=== PATIENT | female | born 2000 | race American Indian/Alaskan Native ===

== ENCOUNTER 2019-03-18 20:07 | Emergency (ER) | payer MEDICAID ==
--- NOTE | 2019-03-18 20:27 | Emergency Department Report ---
Blank Doc - Documentation Documentation: This is a 19-year-old female that presents with pelvic cramping. Patient is 18 weeks . Denies any vaginal bleeding. This initial assessment/diagnostic orders/clinical plan/treatment(s) is/are subject to change based on patient's health status, clinical progression and re- assessment by fellow clinical providers in the ED. Further treatment and workup at subsequent clinical providers discretion. Patient/guardians urged not to elope from the ED as their condition may be serious if not clinically assessed and managed. Initial orders include: 1- Patient sent to [facility] for further evaluation and treatment 2- UA 3- labs
[2019-03-18 21:05] LABS: Basophils % (Auto) 0.2 % (0.0-1.8); Eosinophils # (Auto) 0.1 K/mm3 (0.0-0.4); Eosinophils % (Auto) 0.7 % (0.0-4.3); Hematocrit 34.7 % (30.3-42.9); Hemoglobin 11.6 gm/dl (10.1-14.3); Lymphocytes # (Auto) 0.9 K/mm3 (1.2-5.4); Lymphocytes % (Auto) 11.2 % (13.4-35.0); Mean Corpuscular HGB Conc 33 % (30-34); Mean Corpuscular Volume 94 fl (79-97); Monocytes # (Auto) 0.6 K/mm3 (0.0-0.8); Monocytes % (Auto) 7.2 % (0.0-7.3); Platelet Count 181 K/mm3 (140-440); Red Blood Count 3.67 M/mm3 (3.65-5.03); Red Cell Distribution Width 13.7 % (13.2-15.2)
[2019-03-18 21:24] LABS: BUN/Creatinine Ratio 18; Blood Urea Nitrogen 9 mg/dL (7-17); Calcium 8.5 mg/dL (8.4-10.2); Hemolysis Index 4
[2019-03-18 21:59] LABS: Bilirubin,Urine NEG (Negative); Blood,Urine NEG (Negative); Color,Urine Yellow (Yellow); Mucus,Urine FEW /HPF; Protein,Urine <15 mg/dL mg/dL (Negative)
--- NOTE | 2019-03-19 00:37 | Ultrasound Report ---
PROCEDURE: US OB >= 14 WEEKS FETUS TECHNIQUE: Transabdominal imaging was obtained of the pelvis. HISTORY: Abd pain COMPARISONS: None FINDINGS: There is a single viable intrauterine with an estimated gestational age of 17 weeks 4 days based on sonographic criteria. The heart rate is 140 BPM. The fetus is in transverse lie with t he head toward maternal right side. The placenta is posterior in position and is grade 1. There is no evidence of previa. A complete survey of organs was not obtained. Free fluid is not seen in th e pelvis. The maternal adnexa were not imaged. IMPRESSION: Single viable IUP, 17 weeks 4 days. The heart rate is 140 BPM.. This document is electronically signed by Vini Hooker MD., March 19 2019 12:35:30 AM ET
--- NOTE | 2019-03-19 01:35 | Emergency Department Report ---
ED HPI - General Chief complaint: Abdominal Pain Stated complaint: CRAMPING 18 WEEKS Time Seen by Provider: 03/18/19 20:25 Source: patient Mode of arrival: Ambulatory Limitations: No Limitations - History of Present Illness Initial comments: This is a 19-year-old -[place] female who presents with abdominal cramping during since 12:00 today. Patient is followed by [facility] at [facility]. Last menstrual period 11/14/2018, A1 miscarriage. She reports the cramping is intermittent diffuse sensation. Denies vaginal bleeding, vaginal discharge, low back pain, nausea or vomiting. MD Complaint: abdominal pain -: This afternoon Location: abdomen Radiation: none Severity: mild Severity scale (0 -10): 2 Quality: cramping Consistency: intermittent Improves with: none Worsens with: none Associated symptoms: denies other symptoms Vaginal bleeding: none :: Yes Number of weeks : 18 OB History - Current : no complications OB History - Previous Pregnancies: miscarriage Last menstrual period: 11/14/18 Pre-betzy care: followed by OB - Related Data : 2 Para: 0 Ab: 1 (miscarriage) Allergies Allergy/AdvReac Type Severity Reaction Status Date / Time No Known Allergies Allergy Unverified 03/18/19 20:32 ED Review of Systems ROS: Stated complaint: CRAMPING 18 WEEKS Other details as noted in HPI Constitutional: denies: chills, fever Respiratory: denies: cough, shortness of breath, wheezing Cardiovascular: denies: chest pain, palpitations Gastrointestinal: abdominal pain. denies: nausea, diarrhea Genitourinary: denies: urgency, dysuria, discharge Musculoskeletal: denies: back pain, joint swelling, arthralgia Skin: denies: rash, lesions Neurological: denies: headache, weakness, paresthesias Psychiatric: denies: anxiety, depression ED Past Medical Hx - Past Medical History Previous Medical History?: No - Surgical History Past Surgical History?: No - Social History Smoking Status: Never Smoker Substance Use Type: None ED Physical Exam - General Limitations: No Limitations General appearance: alert, in no apparent distress - Respiratory Respiratory exam: Present: normal lung sounds bilaterally. Absent: respiratory distress - Cardiovascular Cardiovascular Exam: Present: regular rate, normal rhythm. Absent: systolic murmur, diastolic murmur, rubs, gallop - GI/Abdominal GI/Abdominal exam: Present: soft, normal bowel sounds. Absent: distended, tende rness, guarding, rebound, rigid - Back Exam Back exam: Absent: CVA tenderness (R), CVA tenderness (L) - Neurological Exam Neurological exam: Present: alert, oriented X3 - Psychiatric Psychiatric exam: Present: normal affect, normal mood - Skin Skin exam: Present: warm, dry, intact, normal color. Absent: rash ED Medical Decision Making - Lab Data Result diagrams: 03/18/19 20:44 03/18/19 20:44 Lab Results 03/18/19 03/18/19 03/18/19 Range/Units 20:44 20:44 20:44 WBC 8.2 (4.5-11.0) K/mm3 RBC 3.67 (3.65-5.03) M/mm3 Hgb 11.6 (10.1-14.3) gm/dl Hct 34.7 (30.3-42.9) % MCV 94 (79-97) fl MCH 32 (28-32) pg MCHC 33 (30-34) % RDW 13.7 (13.2-15.2) % Plt Count 181 (140-440) K/mm3 Lymph % (Auto) 11.2 L (13.4-35.0) % Newton % (Auto) 7.2 (0.0-7.3) % Eos % (Auto) 0.7 (0.0-4.3) % Baso % (Auto) 0.2 (0.0-1.8) % Lymph # 0.9 L (1.2-5.4) K/mm3 Newton # 0.6 (0.0-0.8) K/mm3 Eos # 0.1 (0.0-0.4) K/mm3 Baso # 0.0 (0.0-0.1) K/mm3 Seg Neutrophils % 80.7 H (40.0-70.0) % Seg Neutrophils # 6.6 (1.8-7.7) K/mm3 Sodium 134 L (137-145) mmol/L Potassium 3.6 (3.6-5.0) mmol/L Chloride 103.0 (98-107) mmol/L Carbon Dioxide 21 L (22-30) mmol/L Anion Gap 14 mmol/L BUN 9 (7-17) mg/dL Creatinine 0.5 L (0.7-1.2) mg/dL Estimated GFR > 60 ml/min BUN/Creatinine Ratio 18 % Glucose 103 H (65-100) mg/dL Calcium 8.5 (8.4-10.2) mg/dL HCG, Quant 7440 H (0-4) mIU/mL Urine Color (Yellow) Urine Turbidity (Clear) Urine pH (5.0-7.0) Ur Specific [place] (1.003-1.030) Urine Protein (Negative) mg/dL Urine Glucose (UA) (Negative) mg/dL Urine Ketones (Negative) mg/dL Urine Blood (Negative) Urine Nitrite (Negative) Urine Bilirubin (Negative) Urine Urobilinogen (<2.0) mg/dL Ur Leukocyte Esterase (Negative) Urine WBC (Auto) (0.0-6.0) /HPF Urine RBC (Auto) (0.0-6.0) /HPF U Epithel Cells (Auto) (0-13.0) /HPF Urine Mucus /HPF 03/18/19 Range/Units 21:30 WBC (4.5-11.0) K/mm3 RBC (3.65-5.03) M/mm3 Hgb (10.1-14.3) gm/dl Hct (30.3-42.9) % MCV (79-97) fl MCH (28-32) pg MCHC (30-34) % RDW (13.2-15.2) % Plt Count (140-440) K/mm3 Lymph % (Auto) (13.4-35.0) % Newton % (Auto) (0.0-7.3) % Eos % (Auto) (0.0-4.3) % Baso % (Auto) (0.0-1.8) % Lymph # (1.2-5.4) K/mm3 [place] # (0.0-0.8) K/mm3 Eos # (0.0-0.4) K/mm3 Baso # (0.0-0.1) K/mm3 Seg Neutrophils % (40.0-70.0) % Seg Neutrophils # (1.8-7.7) K/mm3 Sodium (137-145) mmol/L Potassium (3.6-5.0) mmol/L Chloride (98-107) mmol/L Carbon Dioxide (22-30) mmol/L Anion Gap mmol/L BUN (7-17) mg/dL Creatinine (0.7-1.2) mg/dL Estimated GFR ml/min BUN/Creatinine Ratio % Glucose (65-100) mg/dL Calcium (8.4-10.2) mg/dL HCG, Quant (0-4) mIU/mL Urine Color Yellow (Yellow) Urine Turbidity Clear (Clear) Urine pH 8.0 H (5.0-7.0) Ur Specific [place] 1.033 H (1.003-1.030) Urine Protein <15 mg/dl (Negative) mg/dL Urine Glucose (UA) Neg (Negative) mg/dL Urine Ketones 20 (Negative) mg/dL Urine Blood Neg (Negative) Urine Nitrite Neg (Negative) Urine Bilirubin Neg (Negative) Urine Urobilinogen 2.0 (<2.0) mg/dL Ur Leukocyte Esterase Mod (Negative) Urine WBC (Auto) 10.0 H (0.0-6.0) /HPF Urine RBC (Auto) 5.0 (0.0-6.0) /HPF U Epithel Cells (Auto) 9.0 (0-13.0) /HPF Urine Mucus Few /HPF - Radiology Data Radiology results: report reviewed PROCEDURE: US OB >= 14 WEEKS FETUS TECHNIQUE: Transabdominal imaging was obtained of the pelvis. HISTORY: Abd pain COMPARISONS: None FINDINGS: There is a single viable intrauterine with an estimated gestational age of 17 weeks 4 days based on sonographic criteria. The heart rate is 140 BPM. The fetus is in transverse lie with the head toward maternal right side. The placenta is posterior in position and is grade 1. There is no evidence of previa. A complete survey of organs was not obtained. Free fluid is not seen in the pelvis. The maternal adnexa were not imaged. IMPRESSION: Single viable IUP, 17 weeks 4 days. The heart rate is 140 BPM.. - Medical Decision Making This is a 19 y.o. female presents with abdominal cramping during for 2 days. Patient was examined by me. Vitals are normal and patient is in no acute distress. Obtained labs and OB ultrasound. Quant 7440 all other labs unremarkable. Single viable IUP, 17 weeks 4 days. The heart rate is 140 BPM. Patient instructed to follow up with [facility]. Patient discharged home in stable condition. Critical care attestation.: If time is entered above; I have spent that time in minutes in the direct care of this critically ill patient, excluding procedure time. ED Disposition Clinical Impression: Abdominal cramping affecting , Threatened miscarriage in early Acute cystitis during Qualifiers: Trimester: second trimester Qualified Code(s): O23.12 - Infections of bladder in , second trimester Disposition: TO HOME OR SELFCARE Is pt being admited?: No Does the pt Need Aspirin: No Condition: Stable Instructions: Abdominal Pain (ED), Threatened Miscarriage (ED), Urinary Tract Infection in Women (ED) Additional Instructions: Remain on bed rest. Follow up with [facility] in 24-48 hours. Increase fluid intake to 1L to 2L daily. Complete full course of antibiotics as prescribed. Return to ER if increased vaginal bleeding, abdominal pain, and low back pain. Follow up with primary care provider in 2-3 days. Referrals: [facility] [Primary Care Provider] - 3-5 Days [facility] [Provider Group] - 3-5 Days [facility] [Provider Group] - 3-5 Days Forms: Work/School Release Form(ED) Time of Disposition: 01:59
== END 2019-03-19 02:07 | disposition home or self-care (01) ==
LOC: ED 20:07
DX: O20.0 Threatened abortion (principal); O23.12 Infections of bladder in pregnancy, second trimester; Z3A.18 18 weeks gestation of pregnancy
CPT/HCPCS: 36415; 76805; 80048; 81001; 84702; 85025

== ENCOUNTER 2019-05-20 04:45 | Outpatient (CLI) | payer OTHER ==
[2019-05-20] MEDS ORDERED: LACTATED RINGERS 1,000 ML IV ONE (05:11)
[2019-05-20 05:33] LABS: Bacteria,Urine 1+ /HPF (Negative); Bilirubin,Urine NEG (Negative); Blood,Urine NEG (Negative); Color,Urine Yellow (Yellow); Mucus,Urine 3+ /HPF
[2019-05-20 06:35] VITALS: BP 94/55
== END 2019-05-20 07:00 | disposition home or self-care (01) ==
LOC: TRG 04:45
PROVIDERS: ATTEND Obstetrics & Gynecology
DX: O26.892 Other specified pregnancy related conditions, second trimester (principal); R10.11 Right upper quadrant pain; O99.353 Diseases of the nervous system complicating pregnancy, third trimester; G43.909 Migraine, unspecified, not intractable, without status migrainosus; O62.9 Abnormality of forces of labor, unspecified; Z3A.27 27 weeks gestation of pregnancy
CPT/HCPCS: 59025; 81001; 87086; 96360; J7120

== ENCOUNTER 2019-06-14 20:50 | Outpatient (CLI) | payer SELFPAY ==
[2019-06-14] MEDS ORDERED: LACTATED RINGERS 500 ML IV ONE (23:44)
[2019-06-14] MEDS ORDERED: BRETHINE SUB-Q SCH (23:45)
[2019-06-15 00:25] LABS: Bilirubin,Urine NEG (Negative); Blood,Urine NEG (Negative); Color,Urine Yellow (Yellow); Mucus,Urine 3+ /HPF; Urobilinogen,Urine < 2.0 mg/dL (<2.0)
[2019-06-15] MEDS ORDERED: ceFAZolin 2 GM in NACL 0.9% 100 ML IV ONE (01:29)
[2019-06-15] MEDS ORDERED: ANCEF/STERILE WATER 2 GM/20 ML 2 GM/20 ML SYRINGE IV ONE (01:53)
== END 2019-06-15 02:37 | disposition home or self-care (01) ==
LOC: TRG 20:50
PROVIDERS: ATTEND Obstetrics & Gynecology
DX: O26.893 Other specified pregnancy related conditions, third trimester (principal); R42 Dizziness and giddiness; O60.03 Preterm labor without delivery, third trimester; O99.353 Diseases of the nervous system complicating pregnancy, third trimester; G43.909 Migraine, unspecified, not intractable, without status migrainosus; Z3A.31 31 weeks gestation of pregnancy
CPT/HCPCS: 81001; 87086; 96374; J0690; J7120; 96360; 96365

== ENCOUNTER 2019-07-08 19:13 | Outpatient (CLI) | payer OTHER ==
[2019-07-08 20:02] LABS: Bilirubin,Urine NEG (Negative); Blood,Urine NEG (Negative); Color,Urine Yellow (Yellow); Mucus,Urine 3+ /HPF
[2019-07-08] MEDS ORDERED: CELESTONE SOLUSPAN IM ONE (20:18)
[2019-07-08] MEDS ORDERED: BRETHINE ONE (20:22)
[2019-07-08] MEDS ORDERED: LACTATED RINGERS 1,000 ML IV ONE (20:40)
[2019-07-08] MEDS ORDERED: BRETHINE SUB-Q SCH (21:00)
[2019-07-08] MEDS ORDERED: LACTATED RINGERS 1,000 ML IV SCH (21:00)
[2019-07-08 21:26] VITALS: BP 107/61
== END 2019-07-08 21:42 | disposition home or self-care (01) ==
LOC: TRG 19:13
PROVIDERS: ATTEND Obstetrics & Gynecology
DX: O62.9 Abnormality of forces of labor, unspecified (principal); O26.893 Other specified pregnancy related conditions, third trimester; R42 Dizziness and giddiness; Z3A.34 34 weeks gestation of pregnancy
CPT/HCPCS: 59025; 81001; 96360; 96361; 96372; J0702; J3105; J7120

== ENCOUNTER 2019-07-12 21:00 | Outpatient (CLI) | payer OTHER ==
[2019-07-12 22:13] VITALS: BP 111/56
[2019-07-12] MEDS ORDERED: LACTATED RINGERS 1,000 ML IV SCH (23:19)
[2019-07-12] MEDS ORDERED: LACTATED RINGERS 1,000 ML ONE (23:19)
== END 2019-07-13 02:30 | disposition home or self-care (01) ==
LOC: TRG 21:00
PROVIDERS: ATTEND Obstetrics & Gynecology
DX: O62.9 Abnormality of forces of labor, unspecified (principal); Z3A.34 34 weeks gestation of pregnancy
CPT/HCPCS: 59025; J7120; 96360

== ENCOUNTER 2019-07-23 16:56 | Outpatient (CLI) | payer OTHER ==
[2019-07-23] MEDS ORDERED: LACTATED RINGERS 500 ML IV ONE (17:12)
[2019-07-23 17:33] VITALS: BP 103/63
[2019-07-23 17:59] LABS: Bilirubin,Urine NEG (Negative); Blood,Urine NEG (Negative); Color,Urine Yellow (Yellow); Mucus,Urine 3+ /HPF; Protein,Urine <15 mg/dL mg/dL (Negative); Urobilinogen,Urine < 2.0 mg/dL (<2.0)
[2019-07-23] MEDS ORDERED: LACTATED RINGERS 1,000 ML IV SCH (18:00)
[2019-07-23 18:12] LABS: Basophils % (Auto) 0.5 % (0.0-1.8); Eosinophils % (Auto) 0.4 % (0.0-4.3); Hematocrit 32.4 % (30.3-42.9); Hemoglobin 10.6 gm/dl (10.1-14.3); Lymphocytes # (Auto) 0.9 K/mm3 (1.2-5.4); Lymphocytes % (Auto) 11.7 % (13.4-35.0); Mean Corpuscular HGB Conc 33 % (30-34); Mean Corpuscular Volume 81 fl (79-97); Monocytes # (Auto) 0.6 K/mm3 (0.0-0.8); Monocytes % (Auto) 8.2 % (0.0-7.3); Platelet Count 127 K/mm3 (140-440); Red Blood Count 4.01 M/mm3 (3.65-5.03); Red Cell Distribution Width 15.5 % (13.2-15.2)
[2019-07-23 18:37] LABS: Alanine Aminotransferase 16 units/L (7-56); Albumin 3.1 g/dL (3.9-5); BUN/Creatinine Ratio 22; Blood Urea Nitrogen 11 mg/dL (7-17); Calcium 8.6 mg/dL (8.4-10.2); Hemolysis Index 51
--- NOTE | 2019-07-23 20:35 | Ultrasound Report ---
ULTRASOUND OBSTETRIC INDICATION / CLINICAL INFORMATION: ob complete. Clinical Gestational Age (GA): Uncertain TECHNIQUE: Transabdominal. COMPARISON: OB ultrasound 03/18/2019 FINDINGS: There is a single intrauterine . Biparietal Diameter = 3.6 cm = 34 weeks, 4 day(s). Head Circumference = 31.0 cm = 34 weeks, 4 day(s). Abdominal Circumference = 30.8 cm = 34 weeks, 5 day(s). Femur Length = 7.0 cm = 35 weeks, 5 day(s). Average Ultrasound Age (AUA) = 34 weeks, 6 day(s). Heart Rate: 161 beats per minute. Estimated Weight in grams (if calculated): 2560 Position: cephalic. Cervix: closed. Length in cm (if measured): 3.7 Placenta: Fundal grade 1 and free of the os. Amniotic Fluid Volume: normal Amniotic Fluid Index (LM) in cm (if calculated): 15.5. Maternal Adnexa: No significant abnormality. IMPRESSION: 1. Single, living intrauterine with estimated sonographic age of 34 weeks, 6 day(s). 2. No significant sonographic abnormality. ULTRASOUND BIOPHYSICAL PROFILE INDICATION: ob complete. COMPARISON: None available. FINDINGS: BREATHING MOVEMENT = 2 GROSS BODY MOVEMENT = 2 TONE = 2 QUALITATIVE AMNIOTIC FLUID VOLUME = 2 TOTAL BIOPHYSICAL SCORE = 8 AMNIOTIC FLUID INDEX (cm) = 15.5 PRESENTATION: Cephalic. HEART RATE (beats per minute): 161 IMPRESSION: 1. biophysical profile = 07/02 Signer Name: Matthias Babin MD Signed: 07/23/2019 8:31 PM Workstation Name: [email or web address]
== END 2019-07-23 20:20 | disposition home or self-care (01) ==
LOC: TRG 16:56
PROVIDERS: ATTEND Obstetrics & Gynecology
DX: O47.03 False labor before 37 completed weeks of gestation, third trimester (principal); O26.893 Other specified pregnancy related conditions, third trimester; R10.2 Pelvic and perineal pain; Z3A.36 36 weeks gestation of pregnancy
CPT/HCPCS: 36415; 76816; 76819; 80053; 81001; 85025; 87086; J7120

== ENCOUNTER 2019-08-02 23:03 | Outpatient (CLI) | payer OTHER ==
[2019-08-02 23:24] VITALS: BP 112/69
== END 2019-08-03 00:12 | disposition home or self-care (01) ==
LOC: TRG 23:03
PROVIDERS: ATTEND Obstetrics & Gynecology
DX: O60.03 Preterm labor without delivery, third trimester (principal); Z3A.37 37 weeks gestation of pregnancy
CPT/HCPCS: 59025

== ENCOUNTER 2019-10-06 03:00 | Emergency (ER) | payer OTHER ==
[2019-10-06] MEDS ORDERED: SODIUM CHLORIDE 0.9% 500 ML 500 ML IV ONE (03:12)
[2019-10-06] MEDS ORDERED: IBUPROFEN 800 MG TAB PO ONE (03:28)
[2019-10-06] MEDS ORDERED: ACETAMINOPHEN 500 MG TAB PO ONE (03:28)
[2019-10-06 03:42] LABS: Hematocrit 36.8 % (30.3-42.9); Hemoglobin 11.4 gm/dl (10.1-14.3); Mean Corpuscular HGB Conc 31 % (30-34); Mean Corpuscular Volume 79 fl (79-97); Platelet Count 213 K/mm3 (140-440); Red Blood Count 4.65 M/mm3 (3.65-5.03); Red Cell Distribution Width 18.8 % (13.2-15.2)
--- NOTE | 2019-10-06 03:45 | XRay Report ---
CHEST 1 VIEW INDICATION / CLINICAL INFORMATION: possible Sepsis. COMPARISON: None available. FINDINGS: SUPPORT DEVICES: None. HEART / MEDIASTINUM: No significant abnormality. LUNGS / PLEURA: No significant pulmonary or pleural abnormality. No pneumothorax. ADDITIONAL FINDINGS: No significant additional findings. IMPRESSION: 1. No acute findings. No evidence of pneumonia. Signer Name: Geri Garcia MD Signed: 10/06/2019 3:41 AM Workstation Name: [id number]
[2019-10-06 04:04] LABS: Alanine Aminotransferase 21 units/L (7-56); Albumin 4.2 g/dL (3.9-5); BUN/Creatinine Ratio 18; Blood Urea Nitrogen 14 mg/dL (7-17); Calcium 8.6 mg/dL (8.4-10.2); Hemolysis Index 6
[2019-10-06] MEDS ORDERED: POTASSIUM CHLORIDE ER 20 MEQ TAB PO ONE (04:13)
--- NOTE | 2019-10-06 04:13 | Emergency Department Report ---
ED Fever HPI - General Chief Complaint: Fever Stated Complaint: FEVER BODY ACHING CHEST PAIN Time Seen by Provider: 10/06/19 03:23 - History of Present Illness Initial Comments: Sheeba is a 19 yo healthy female without significant past medical history who presents with fever for the past day. She has diffuse body aches. She has mild headache. She self treated with ibuprofen and Tylenol prior to arrival. No sick contacts. Positive back pain. No dysuria. No cough. No sick contacts. She stays at home with significant other and 2 month old infant. She is . Timing/Duration: this morning Fever Severity/Quality: subjective Fever Therapy SAFETY INSPECTOR: Ibuprofen, Tylenol Associated Symptoms: headache, muscle aches, other (back pain) ED Review of Systems ROS: Stated complaint: FEVER BODY ACHING CHEST PAIN Other details as noted in HPI Comment: All other systems reviewed and negative Constitutional: fever, malaise Gastrointestinal: denies: abdominal pain, nausea, vomiting Genitourinary: denies: dysuria Musculoskeletal: back pain ED Past Medical Hx - Past Medical History Previous Medical History?: No Hx Hypertension: No Hx Diabetes: No Hx Deep Vein Thrombosis: No Hx Renal Disease: No Hx Sickle Cell Disease: No Hx Seizures: No Hx Asthma: No Hx HIV: No - Surgical History Past Surgical History?: Yes Additional Surgical History: - Family History Family history: hypertension - Social History Smoking Status: Never Smoker Substance Use Type: None - Medications Home Medications: Home Medications Medication Instructions Recorded Confirmed Last Taken Type Vit-Fe Fumar-FA [ 1 tab PO DAILY 05/20/19 08/16/19 1 Day Ago History Vitamin] ~08/15/19 HYDROcodone/APAP 5-325 [[place] 1 - 2 each PO Q4HR PRN #30 tablet 08/16/19 Unknown Rx 5/325] Ferrous Sulfate [Feosol 325 MG tab] 325 mg PO BID #60 tablet 08/19/19 Unknown Rx Ibuprofen [Motrin 800 MG tab] 800 mg PO Q6H PRN #30 tablet 08/19/19 Unknown Rx Vit-Fe Fumar-FA [ 1 each PO QDAY #30 tablet 08/19/19 Unknown Rx Vitamin] cephALEXin [Keflex] 500 mg PO Q6HR 7 Days #28 capsule 10/06/19 Unknown Rx ED Physical Exam - General Limitations: No Limitations General appearance: alert, in no apparent distress - Head Head exam: Present: atraumatic, normocephalic - Eye Eye exam: Present: normal appearance - ENT ENT exam: Present: mucous membranes moist - Neck Neck exam: Present: normal inspection, full ROM - Respiratory Respiratory exam: Present: normal lung sounds bilaterally. Absent: respiratory distress, wheezes, rales, rhonchi - Cardiovascular Cardiovascular Exam: Present: normal rhythm, tachycardia, normal heart sounds. Absent: systolic murmur, diastolic murmur, rubs, gallop - GI/Abdominal GI/Abdominal exam: Present: soft, normal bowel sounds. Absent: distended, tenderness, guarding, rebound - Extremities Exam Extremities exam: Present: normal inspection - Back Exam Back exam: Present: normal inspection - Neurological Exam Neurological exam: Present: alert, oriented X3 - Psychiatric Psychiatric exam: Present: normal affect, normal mood - Skin Skin exam: Present: warm, dry, intact, normal color. Absent: rash ED Course Vital Signs 10/06/19 10/06/19 10/06/19 03:08 03:25 03:31 Temperature 102.5 F H Pulse Rate 118 H 114 H 138 H Respiratory 18 21 16 Rate Blood Pressure 114/74 124/75 124/75 Blood Pressure [Left] O2 Sat by Pulse 99 99 Oximetry 10/06/19 10/06/19 10/06/19 03:32 03:40 03:42 Temperature 102.6 F H Pulse Rate 115 H Respiratory 16 16 16 Rate Blood Pressure Blood Pressure 125/63 [Left] O2 Sat by Pulse 100 Oximetry 10/06/19 10/06/19 10/06/19 03:45 04:00 04:40 Temperature Pulse Rate 114 H 104 H Respiratory 22 24 16 Rate Blood Pressure 124/75 114/74 Blood Pressure [Left] O2 Sat by Pulse 99 99 Oximetry 10/06/19 04:42 Temperature Pulse Rate Respiratory 16 Rate Blood Pressure Blood Pressure [Left] O2 Sat by Pulse Oximetry ED Medical Decision Making - Lab Data Result diagrams: 10/06/19 03:24 10/06/19 03:24 Laboratory Results - last 24 hr 10/06/19 10/06/19 10/06/19 03:24 03:24 03:24 WBC 14.7 H RBC 4.65 Hgb 11.4 Hct 36.8 MCV 79 MCH 24 L MCHC 31 RDW 18.8 H Plt Count 213 Seg Neutrophils % Coding Machine Operator Sodium 141 Potassium 2.7 L* Chloride 104.0 Carbon Dioxide 20 L Anion Gap 20 BUN 14 Creatinine 0.8 Estimated GFR > 60 BUN/Creatinine Ratio 18 Glucose 104 H Lactic Acid 1.50 Calcium 8.6 Total Bilirubin 0.20 AST 23 ALT 21 Alkaline Phosphatase 108 Total Protein 7.8 Albumin 4.2 Albumin/Globulin Ratio 1.2 Laboratory Results - last 24 hr 10/06/19 10/06/19 10/06/19 03:24 03:24 03:24 WBC 14.7 H RBC 4.65 Hgb 11.4 Hct 36.8 MCV 79 MCH 24 L MCHC 31 RDW 18.8 H Plt Count 213 Add Manual Diff Complete Total Counted 100 Seg Neutrophils % Coding Machine Operator Seg Neuts % (Manual) 92.0 H Band Neutrophils % 0 Lymphocytes % (Manual) 3.0 L Reactive Lymphs % (Man) 0 Monocytes % (Manual) 2.0 Eosinophils % (Manual) 3.0 Basophils % (Manual) 0 Metamyelocytes % 0 Myelocytes % 0 Promyelocytes % 0 Blast Cells % 0 Nucleated RBC % Not Reportable Seg Neutrophils # Man 13.5 H Band Neutrophils # 0.0 Lymphocytes # (Manual) 0.4 L Abs React Lymphs (Man) 0.0 Monocytes # (Manual) 0.3 Eosinophils # (Manual) 0.4 Basophils # (Manual) 0.0 Metamyelocytes # 0.0 Myelocytes # 0.0 Promyelocytes # 0.0 Blast Cells # 0.0 WBC Morphology Not Reportable Hypersegmented Neuts Not Reportable Hyposegmented Neuts Not Reportable Hypogranular Neuts Not Reportable Smudge Cells Not Reportable Toxic Granulation Not Reportable Toxic Vacuolation Not Reportable Dohle Bodies Not Reportable Pelger-Huet Anomaly Not Reportable Akil Rods Not Reportable Platelet Estimate Consistent w auto Clumped Platelets Not Reportable Plt Clumps, EDTA Not Reportable Large Platelets Not Reportable Giant Platelets Not Reportable Platelet Satelliting Not Reportable Plt Morphology Comment Not Reportable RBC Morphology Not Reportable Dimorphic RBCs Not Reportable Polychromasia Not Reportable Hypochromasia Not Reportable Poikilocytosis Not Reportable Anisocytosis 1+ Microcytosis Not Reportable Macrocytosis Not Reportable Spherocytes Not Reportable Pappenheimer Bodies Not Reportable Sickle Cells Not Reportable Target Cells Not Reportable Tear Drop Cells Not Reportable Ovalocytes Not Reportable Helmet Cells Not Reportable [place] Bodies Not Reportable [place] Rings Not Reportable [place] Cells Not Reportable Bite Cells Not Reportable Crenated Cell Not Reportable Elliptocytes Not Reportable Acanthocytes (Spur) Not Reportable Rouleaux Not Reportable Hemoglobin C Crystals Not Reportable Schistocytes Not Reportable Malaria parasites Not Reportable Miller Bodies Not Reportable Hem Pathologist Commnt No Sodium 141 Potassium 2.7 L* Chloride 104.0 Carbon Dioxide 20 L Anion Gap 20 BUN 14 Creatinine 0.8 Estimated GFR > 60 BUN/Creatinine Ratio 18 Glucose 104 H Lactic Acid 1.50 Calcium 8.6 Total Bilirubin 0.20 AST 23 ALT 21 Alkaline Phosphatase 108 Total Protein 7.8 Albumin 4.2 Albumin/Globulin Ratio 1.2 Urine Color Urine Turbidity Urine pH Ur Specific [place] Urine Protein Urine Glucose (UA) Urine Ketones Urine Blood Urine Nitrite Urine Bilirubin Urine Urobilinogen Ur Leukocyte Esterase Urine WBC (Auto) Urine RBC (Auto) U Epithel Cells (Auto) Urine Bacteria (Auto) Urine Mucus 10/06/19 04:16 WBC RBC Hgb Hct MCV MCH MCHC RDW Plt Count Add Manual Diff Total Counted Seg Neutrophils % Seg Neuts % (Manual) Band Neutrophils % Lymphocytes % (Manual) Reactive Lymphs % (Man) Monocytes % (Manual) Eosinophils % (Manual) Basophils % (Manual) Metamyelocytes % Myelocytes % Promyelocytes % Blast Cells % Nucleated RBC % Seg Neutrophils # Man Band Neutrophils # Lymphocytes # (Manual) Abs React Lymphs (Man) Monocytes # (Manual) Eosinophils # (Manual) Basophils # (Manual) Metamyelocytes # Myelocytes # Promyelocytes # Blast Cells # WBC Morphology Hypersegmented Neuts Hyposegmented Neuts Hypogranular Neuts Smudge Cells Toxic Granulation Toxic Vacuolation Dohle Bodies Pelger-Huet Anomaly Akil Rods Platelet Estimate Clumped Platelets Plt Clumps, EDTA Large Platelets Giant Platelets Platelet Satelliting Plt Morphology Comment RBC Morphology Dimorphic RBCs Polychromasia Hypochromasia Poikilocytosis Anisocytosis Microcytosis Macrocytosis Spherocytes Pappenheimer Bodies Sickle Cells Target Cells Tear Drop Cells Ovalocytes Helmet Cells [place] Bodies [place] Rings [place] Cells Bite Cells Crenated Cell Elliptocytes Acanthocytes (Spur) Rouleaux Hemoglobin C Crystals Schistocytes Malaria parasites Miller Bodies Hem Pathologist Commnt Sodium Potassium Chloride Carbon Dioxide Anion Gap BUN Creatinine Estimated GFR BUN/Creatinine Ratio Glucose Lactic Acid Calcium Total Bilirubin AST ALT Alkaline Phosphatase Total Protein Albumin Albumin/Globulin Ratio Urine Color Yellow Urine Turbidity Cloudy Urine pH 5.0 Ur Specific [place] 1.033 H Urine Protein >500 Urine Glucose (UA) Neg Urine Ketones 20 Urine Blood Sm Urine Nitrite Neg Urine Bilirubin Neg Urine Urobilinogen 4.0 Ur Leukocyte Esterase Mod Urine WBC (Auto) 73.0 H Urine RBC (Auto) 20.0 U Epithel Cells (Auto) 34.0 H Urine Bacteria (Auto) 3+ Urine Mucus 3+ - Medical Decision Making Sheeba presents with fever body aches DDX: influenza vs acute pyelonephritis, with elevated WBC, consider bacterial infection, UA contaminated with equivocal results rx: cephalexin, Sheeba is . given IV ceftriaxone in the ED Also given potassium supplementation Critical care attestation.: If time is entered above; I have spent that time in minutes in the direct care of this critically ill patient, excluding procedure time. ED Disposition Clinical Impression: Acute pyelonephritis Disposition: DC-01 TO HOME OR SELFCARE Is pt being admited?: No Does the pt Need Aspirin: No Condition: Stable Instructions: Acute Pyelonephritis (ED) Prescriptions: cephALEXin [Keflex] 500 mg PO Q6HR 7 Days #28 capsule Referrals: PRIMARY CARE, [Primary Care Provider] - 3-5 Days
[2019-10-06 04:40] LABS: Anisocytosis 1+; Basophils % (Manual) 0 % (0.0-1.8); Platelet Estimate Consistent w Auto; Total Cells Counted 100
[2019-10-06 04:43] LABS: Bacteria,Urine 3+ /HPF (Negative); Bilirubin,Urine NEG (Negative); Blood,Urine SM (Negative); Color,Urine Yellow (Yellow); Mucus,Urine 3+ /HPF
[2019-10-06 04:44] LABS: Protein,Urine >500 mg/dL (Negative)
[2019-10-06] MEDS ORDERED: cefTRIAXone/NS 2 GM/100 ML 2 GM/100 ML BAG IV ONE (05:30)
[2019-10-06 06:03] VITALS: BP 110/62
== END 2019-10-06 06:10 | disposition home or self-care (01) ==
LOC: ED 03:00
DX: N10 Acute pyelonephritis (principal); Z79.1 Long term (current) use of non-steroidal anti-inflammatories (NSAID); Z79.899 Other long term (current) drug therapy
CPT/HCPCS: 36415; 71045; 80053; 81001; 82140; 85007; 85025; 87040; 87086; 93005; 93010; 96365; 99284; J0696; J7040